=== PATIENT | male | born 1985 | race African-American/Black ===

== ENCOUNTER 2017-04-27 02:46 | Emergency (ER) | payer OTHER, SELFPAY ==
[~2017-04-27] VITALS: Ht 172.7 cm; Wt 83.5 kg
[2017-04-27] MEDS ORDERED: ONDANSETRON 2MG/ML, 2ML ONE (03:08)
[2017-04-27] MEDS ORDERED: SODIUM CHLORIDE 0.9% 1,000ML IVBOLUS ONE (03:30)
[2017-04-27] MEDS ORDERED: ONDANSETRON 2MG/ML, 2ML IVPush ONE (03:30)
[2017-04-27 03:33] LABS: HEMATOCRIT 45.1 % (39.2-51.8); WHITE BLOOD COUNT 10.3 x10^3/uL (3.4-10)
[2017-04-27 03:44] LABS: BLOOD UREA NITROGEN 17 mg/dL (7-18)
[2017-04-27 03:48] LABS: ASPARTATE AMINO TRANSFERASE 32 U/L (15-37)
[2017-04-27 04:55] VITALS: BP 113/49
== END 2017-04-27 03:59 ==
LOC: ED 03:58
DX: A09 Infectious gastroenteritis and colitis, unspecified (principal)
CPT/HCPCS: 36415; 74020; 80053; 81003; 83690; 85025; 96361; 96374; 99285; J2405; J7030

== ENCOUNTER 2017-05-14 10:47 | Emergency (ER) | payer OTHER ==
[~2017-05-14] VITALS: Ht 172.7 cm; Wt 86.8 kg
[2017-05-14 10:50] VITALS: BP 100/63
== END 2017-05-14 12:35 | disposition home or self-care (01) ==
LOC: ED 11:00
DX: M54.12 Radiculopathy, cervical region (principal); R20.8 Other disturbances of skin sensation; M48.02 Spinal stenosis, cervical region
CPT/HCPCS: 72141; 99284

== ENCOUNTER 2017-09-15 21:37 | Emergency (ER) | payer MEDICAID ==
[~2017-09-15] VITALS: Ht 172.7 cm; Wt 83.9 kg
[2017-09-15 22:45] VITALS: BP 117/53
== END 2017-09-15 23:24 | disposition home or self-care (01) ==
LOC: ED 23:21
DX: J20.9 Acute bronchitis, unspecified (principal)
CPT/HCPCS: 71046; 99284

== ENCOUNTER 2018-01-07 03:14 | Observation (INO) | payer MEDICAID ==
[~2018-01-07] VITALS: Ht 172.7 cm; Wt 82.0 kg
[2018-01-07 05:28] LABS: ALBUMIN 3.9 g/dL (3.4-5.0); ANION GAP 6 mmol/L (5-15); CALCIUM 8.7 mg/dL (8.5-10.1); CHLORIDE 108 mmol/L (98-107); CREATININE 1.05 mg/dL (0.7-1.3)
[2018-01-07 05:29] LABS: BASOPHILS # (AUTO) 0.03 x10^3/uL (0-0.1); BASOPHILS % (AUTO) 0 % (0-1); EOSINOPHILS # (AUTO) 0.14 x10^3/uL (0-0.4); EOSINOPHILS % (AUTO) 2 % (1-7); LYMPHOCYTES # (AUTO) 1.34 x10^3/uL (1-3.4); LYMPHOCYTES % (AUTO) 18 % (22-44); MD NO; MEAN CORPUSCULAR HEMOGLOBIN 31.7 pg (27.5-34.5); MEAN CORPUSCULAR HGB CONC 33.8 g/dL (33.2-36.2); MEAN CORPUSCULAR VOLUME 93.9 fL (81-97); MEAN PLATELET VOLUME 8.4 fL (7.4-10.4); MONOCYTES % (AUTO) 7 % (2-9); NEUTROPHILS # (AUTO) 5.45 x10^3/uL (1.8-6.8); NEUTROPHILS % (AUTO) 73 % (42-75); PLATELET COUNT 211 x10^3/uL (130-400); RED BLOOD COUNT 4.68 x10^6/uL (4.38-5.82); RED CELL DISTRIBUTION WIDTH 12.6 % (9.4-14.8)
[2018-01-07 05:30] LABS: ACETAMINOPHEN < 2 mcg/mL (10-30); SALICYLATE LEVEL < 1.7 mg/dL (2.8-20.0)
[2018-01-07 05:44] LABS: AMPHETAMINE SCREEN, URINE Positive (Negative); BARBITURATE SCREEN, URINE Negative (Negative); BENZODIAZEPINE SCREEN, URINE Negative (Negative); CANNABINOID SCREEN, URINE Negative (Negative); COCAINE SCREEN, URINE Negative (Negative); METHADONE SCREEN, URINE Negative (Negative); OPIATE SCREEN, URINE Negative (Negative)
[2018-01-07 08:00] VITALS: BP 102/57
[2018-01-07] MEDS ORDERED: NICOTINE 14MG/24 HR PATCH.TD24 TD SCH (09:00)
[2018-01-07] MEDS ORDERED: LORazepam 1MG TABLET PO PRN (09:00)
[2018-01-09] MEDS ORDERED: ALBUTEROL/IPRATROPIUM 2.5MG/0.5MG, 3 ML ONE (20:28)
== END 2018-01-07 10:33 | disposition home or self-care (01) ==
LOC: ED 05:14 → EDIP 07:24 → UNDODISOB 10:23 → EDIP 10:33
PROVIDERS: ADMIT Internal Medicine; ATTEND Internal Medicine
DX: F32.9 Major depressive disorder, single episode, unspecified (principal); R45.851 Suicidal ideations; M48.00 Spinal stenosis, site unspecified; F10.99 Alcohol use, unspecified with unspecified alcohol-induced disorder; F20.9 Schizophrenia, unspecified
CPT/HCPCS: 36415; 80048; 80307; 80329; 82040; 85025; 99285; G0378; G0480

== ENCOUNTER 2018-06-17 23:29 | Emergency (ER) | payer MEDICAID ==
[~2018-06-17] VITALS: Ht 172.7 cm; Wt 186.0 kg
[2018-06-17 23:36] VITALS: BP 103/43
[2018-06-18] MEDS ORDERED: IBUPROFEN 200 MG TABLET PO ONE
[2018-06-18] MEDS ORDERED: BENZONATATE 100 MG CAPSULE PO ONE
[2018-06-18] MEDS ORDERED: BENZONATATE 100 MG CAPSULE ONE (00:16)
[2018-06-18] MEDS ORDERED: IBUPROFEN 200 MG TABLET ONE (00:16)
== END 2018-06-18 00:56 | disposition home or self-care (01) ==
LOC: ED 06-18 00:50
DX: J20.9 Acute bronchitis, unspecified (principal); R07.89 Other chest pain
CPT/HCPCS: 71046; 99284

== ENCOUNTER 2019-05-09 11:30 | Emergency (ER) | payer MEDICAID ==
[~2019-05-09] VITALS: Ht 172.7 cm; Wt 84.1 kg
--- NOTE | 2019-05-09 11:37 | NUR ---
NA X1
[2019-05-09 11:45] VITALS: BP 104/39
== END 2019-05-09 13:02 | disposition home or self-care (01) ==
LOC: ED 12:50
DX: S46.011A Strain of muscle(s) and tendon(s) of the rotator cuff of right shoulder, initial encounter (principal); S46.811A Strain of other muscles, fascia and tendons at shoulder and upper arm level, right arm, initial encounter; F20.9 Schizophrenia, unspecified; X58.XXXA Exposure to other specified factors, initial encounter; Y93.89 Activity, other specified; Y92.89 Other specified places as the place of occurrence of the external cause; Y99.8 Other external cause status
CPT/HCPCS: 99283

== ENCOUNTER 2020-11-07 15:18 | Emergency (ER) | payer MEDICAID ==
[~2020-11-07] VITALS: Ht 172.7 cm; Wt 87.0 kg
--- NOTE | 2020-11-07 15:43 | NUR ---
TASK RN: Pt reports for the last two weeks hes had burning/tingling in bilateral hands. WITH MIDSTERNAL CHEST PAIN WITH DEEP BREATHING REPORTS HX OF VERTEBRAL INJURY NOT ANXIOUS VSS ON [employer] REPORT TO VIANCA HINES
--- NOTE | 2020-11-07 16:53 | NUR ---
[facility] CALLED STATING THEY ARE BACKED UP AND WILL GET PT IN APPROX 45 MIN.
[2020-11-07 17:52] LABS: BASOPHILS % (AUTO) 1 % (0-1); EOSINOPHILS % (AUTO) 1 % (1-7); LYMPHOCYTES % (AUTO) 14 % (22-44); MEAN CORPUSCULAR HEMOGLOBIN 32.4 pg (27.5-34.5); MEAN CORPUSCULAR HGB CONC 34.1 g/dL (33.2-36.2); MEAN PLATELET VOLUME 8.7 fL (7.4-10.4); MONOCYTES % (AUTO) 10 % (2-9); NEUTROPHILS % (AUTO) 75 % (42-75); PLATELET COUNT 194 x10^3/uL (130-400); RED BLOOD COUNT 4.53 x10^6/uL (4.38-5.82); RED CELL DISTRIBUTION WIDTH 12.3 % (9.4-14.8)
[2020-11-07 18:03] LABS: ALBUMIN 3.8 g/dL (3.4-5.0); ANION GAP 6 mmol/L (5-15); CALCIUM 8.9 mg/dL (8.5-10.1); CHLORIDE 108 mmol/L (98-107)
[2020-11-07 18:05] LABS: CREATININE 1.16 mg/dL (0.7-1.3)
[2020-11-07 18:12] LABS: MD NO
--- NOTE | 2020-11-07 18:20 | NUR ---
[facility] CALLED STATING PT FEELS ANXIOUS FOR MRI AND IS REQUESTING MEDICATION. VICTOR HUGO MADE AWARE AND HE WILL GO SPEAK WITH PT.
[2020-11-07] MEDS ORDERED: LORazepam 2 MG/ML, 1ML ONE (18:27)
[2020-11-07] MEDS ORDERED: LORazepam 2 MG/ML, 1ML IVPush ONE (18:30)
--- NOTE | 2020-11-07 19:20 | NUR ---
PT REQUESTING SOMETHING TO EAT. VICTOR HUGO OKAY WITH GIVING PT FOOD.
--- NOTE | 2020-11-07 19:33 | NUR ---
PT GIVEN [place]
[2020-11-07 20:44] VITALS: BP 110/58
== END 2020-11-07 20:47 | disposition home or self-care (01) ==
LOC: ED 19:09
DX: M54.12 Radiculopathy, cervical region (principal); R20.2 Paresthesia of skin; R53.1 Weakness
CPT/HCPCS: 36415; 72141; 80048; 82040; 85025; 96374; 99284; J2060; J7512; 96372